=== PATIENT | female | born 1975 | race Caucasian/White ===

== ENCOUNTER 2018-07-12 19:19 | Emergency (ER) | payer BC, OTHER ==
[2018-07-12] MEDS ORDERED: ONDANSETRON 4 MG/2 ML VIAL IVP STA (20:25)
[2018-07-12] MEDS ORDERED: KETOROLAC 30 MG/ML 1 ML VIAL IVP STA (20:25)
[2018-07-12] MEDS ORDERED: MORPHINE SULFATE 2 MG/ML SYRINGE IVP STA (20:25)
[2018-07-12] MEDS ORDERED: SODIUM CHLORIDE 0.9% 1,000 ML IV ONE (20:25)
--- NOTE | 2018-07-12 20:28 | ED ---
Abdominal Pain HPI - General Chief Complaint: Abdominal Pain Stated Complaint: left side pain Time Seen by Provider: 07/12/18 19:45 Source: patient, RN notes reviewed, old records reviewed Mode of arrival: ambulatory Limitations: no limitations - History of Present Illness Initial Comments: Patient is a 43-year-old female presents weren't particularly left-sided abdominal pain for the past 3 days. Patient reports that she was seen in urgent care initially that she urinary tract infection. Urine was clear that time. They didn't x-rayof any acute process. Patient states that she's had normal bowel movements. She does feel nauseated. Surgical history includes cholecystectomy. - Related Data Home Medications Medication Instructions Recorded Confirmed Acetaminophen Tab [Tylenol Tab] 650 mg PO Q4H 10/01/15 10/01/15 Previous Rx's Medication Instructions Recorded Ibuprofen [Motrin] 800 mg PO Q6HR PRN #30 tab 06/06/15 Ibuprofen 600 mg PO TID #20 tablet 07/12/18 Allergies Allergy/AdvReac Type Severity Reaction Status Date / Time Penicillins Allergy Swelling Verified 07/12/18 19:29 Review of Systems ROS Statement: Those systems with pertinent positive or pertinent negative responses have been documented in the HPI. ROS Other: All systems not noted in ROS Statement are negative. Past Medical History Past Medical History: Seizure Disorder Additional Past Medical History / Comment(s): hypoglycemia History of Any Multi-Drug Resistant Organisms: None Reported Past Surgical History: Section, Cholecystectomy, Uterine Ablation Past Psychological History: No Psychological Hx Reported Smoking Status: Former smoker Past Alcohol Use History: None Reported Past Drug Use History: None Reported General Exam - General Exam Comments Initial Comments: this is a 43-year-old female. Alert and oriented. No significant distress. Limitations: no limitations General appearance: alert, in no apparent distress Head exam: Present: atraumatic, normocephalic, normal inspection Eye exam: Present: normal appearance, PERRL, EOMI. Absent: scleral icterus, conjunctival injection, periorbital swelling ENT exam: Present: normal exam, mucous membranes moist Neck exam: Present: normal inspection. Absent: tenderness, meningismus, lymphadenopathy Respiratory exam: Present: normal lung sounds bilaterally. Absent: respiratory distress, wheezes, rales, rhonchi, stridor Cardiovascular Exam: Present: regular rate, normal rhythm, normal heart sounds. Absent: systolic murmur, diastolic murmur, rubs, gallop, clicks GI/Abdominal exam: Present: soft, tenderness (Left lower quadrant tenderness.), normal bowel sounds. Absent: distended, guarding, rebound, rigid Extremities exam: Present: normal inspection, full ROM, normal capillary refill. Absent: tenderness, pedal edema, joint swelling, calf tenderness Back exam: Present: normal inspection Neurological exam: Present: alert, oriented X3, CN II-XII intact Psychiatric exam: Present: normal affect, normal mood Skin exam: Present: warm, dry, intact, normal color. Absent: rash Course Vital Signs 07/12/18 07/12/18 19:26 20:48 Temperature 97.9 F Pulse Rate 69 64 Respiratory 16 16 Rate Blood Pressure 123/74 127/66 O2 Sat by Pulse 99 98 Oximetry Medical Decision Making - Medical Decision Making 43-year-old female presents emergency Department states she played left-sided abdominal pain for the past 3 days. She is concerned. Her depression. She was seen in urgent care. Urinalysis negative at time. He states she has some tenderness or left lower quadrant. Concern possibly diverticulitis or urinary tract issues. At this time patient's labwork was unremarkable. Given tenderness to do computed tomography scan checking for diverticulitis. CT was completed with contrast. Negative for any acute disease. Patient's pain could likely be muscular skeletal nature as well. Patient was discharged at this time with follow-up with PCP. Given a note for work. All questions answered return parameters were discussed. - Lab Data Result diagrams: 07/12/18 20:15 07/12/18 20:15 Lab Results 07/12/18 07/12/18 07/12/18 Range/Units 20:15 20:15 20:15 WBC 5.5 (3.8-10.6) k/uL RBC 4.35 (3.80-5.40) m/uL Hgb 13.3 (11.4-16.0) gm/dL Hct 41.5 (34.0-46.0) % MCV 95.2 (80.0-100.0) fL MCH 30.5 (25.0-35.0) pg MCHC 32.0 (31.0-37.0) g/dL RDW 12.8 (11.5-15.5) % Plt Count 265 (150-450) k/uL Neutrophils % 45 % Lymphocytes % 41 % Monocytes % 8 % Eosinophils % 3 % Basophils % 1 % Neutrophils # 2.5 (1.3-7.7) k/uL Lymphocytes # 2.3 (1.0-4.8) k/uL Monocytes # 0.4 (0-1.0) k/uL Eosinophils # 0.2 (0-0.7) k/uL Basophils # 0.0 (0-0.2) k/uL PT 9.8 (9.0-12.0) sec INR 1.0 (<1.2) APTT 22.9 (22.0-30.0) sec Sodium 140 (137-145) mmol/L Potassium 4.0 (3.5-5.1) mmol/L Chloride 105 (98-107) mmol/L Carbon Dioxide 27 (22-30) mmol/L Anion Gap 8 mmol/L BUN 14 (7-17) mg/dL Creatinine 0.60 (0.52-1.04) mg/dL Est GFR (CKD-EPI)AfAm >90 (>60 ml/min/1.73 sqM) Est GFR (CKD-EPI)NonAf >90 (>60 ml/min/1.73 sqM) Glucose 86 (74-99) mg/dL Calcium 9.3 (8.4-10.2) mg/dL Total Bilirubin 0.2 (0.2-1.3) mg/dL AST 26 (14-36) U/L ALT 34 (9-52) U/L Alkaline Phosphatase 54 (38-126) U/L Total Protein 8.0 (6.3-8.2) g/dL Albumin 4.5 (3.5-5.0) g/dL Amylase 61 (30-110) U/L Lipase 173 (23-300) U/L Urine Color Urine Appearance (Clear) Urine pH (5.0-8.0) Ur Specific [place] (1.001-1.035) Urine Protein (Negative) Urine Glucose (UA) (Negative) Urine Ketones (Negative) Urine Blood (Negative) Urine Nitrite (Negative) Urine Bilirubin (Negative) Urine Urobilinogen (<2.0) mg/dL Ur Leukocyte Esterase (Negative) 07/12/18 Range/Units 20:15 WBC (3.8-10.6) k/uL RBC (3.80-5.40) m/uL Hgb (11.4-16.0) gm/dL Hct (34.0-46.0) % MCV (80.0-100.0) fL MCH (25.0-35.0) pg MCHC (31.0-37.0) g/dL RDW (11.5-15.5) % Plt Count (150-450) k/uL Neutrophils % % Lymphocytes % % Monocytes % % Eosinophils % % Basophils % % Neutrophils # (1.3-7.7) k/uL Lymphocytes # (1.0-4.8) k/uL Monocytes # (0-1.0) k/uL Eosinophils # (0-0.7) k/uL Basophils # (0-0.2) k/uL PT (9.0-12.0) sec INR (<1.2) APTT (22.0-30.0) sec Sodium (137-145) mmol/L Potassium (3.5-5.1) mmol/L Chloride (98-107) mmol/L Carbon Dioxide (22-30) mmol/L Anion Gap mmol/L BUN (7-17) mg/dL Creatinine (0.52-1.04) mg/dL Est GFR (CKD-EPI)AfAm (>60 ml/min/1.73 sqM) Est GFR (CKD-EPI)NonAf (>60 ml/min/1.73 sqM) Glucose (74-99) mg/dL Calcium (8.4-10.2) mg/dL Total Bilirubin (0.2-1.3) mg/dL AST (14-36) U/L ALT (9-52) U/L Alkaline Phosphatase (38-126) U/L Total Protein (6.3-8.2) g/dL Albumin (3.5-5.0) g/dL Amylase (30-110) U/L Lipase (23-300) U/L Urine Color Yellow Urine Appearance Clear (Clear) Urine pH 6.5 (5.0-8.0) Ur Specific [place] 1.022 (1.001-1.035) Urine Protein Negative (Negative) Urine Glucose (UA) Negative (Negative) Urine Ketones Negative (Negative) Urine Blood Negative (Negative) Urine Nitrite Negative (Negative) Urine Bilirubin Negative (Negative) Urine Urobilinogen <2.0 (<2.0) mg/dL Ur Leukocyte Esterase Negative (Negative) - Radiology Data Radiology results: report reviewed CT abdomen pelvis is negative for any acute process. Disposition Clinical Impression: Left sided abdominal pain Disposition: HOME SELF-CARE Condition: Good Instructions: Abdominal Pain (ED) Additional Instructions: Patient advised to follow-up with primary care physician. Return to the emergency department if any alarming signs or symptoms occur. Prescriptions: Ibuprofen 600 mg PO TID #20 tablet Is patient prescribed a controlled substance at d/c from ED?: No Referrals: None,Stated [Primary Care Provider] - 1-2 days Myriam Pickett MD [STAFF PHYSICIAN] - 1-2 days Time of Disposition: 22:04
[2018-07-12 20:37] LABS: Appearance,Urine Clear (Clear); Bilirubin,Urine Negative (Negative); Blood,Urine Negative (Negative); Color,Urine Yellow; Glucose,Urine (UA) Negative (Negative); Ketones,Urine Negative (Negative); Leukocyte Esterase,Urine Negative (Negative); Nitrite,Urine Negative (Negative); PH, Urine 6.5 (5.0-8.0); Protein,Urine Negative (Negative); Specific Gravity,Urine 1.022 (1.001-1.035); Urobilinogen,Urine <2.0 mg/dL (<2.0)
[2018-07-12 20:45] LABS: Partial Thromboplastin Time 22.9 sec (22.0-30.0); Prothrombin Time 9.8 sec (9.0-12.0)
[2018-07-12 20:46] LABS: Basophils % (A) 1 %; Eosinophils # (A) 0.2 k/uL (0-0.7); Eosinophils % (A) 3 %; HCT 41.5 % (34.0-46.0); HGB 13.3 gm/dL (11.4-16.0); Lymphocytes # (A) 2.3 k/uL (1.0-4.8); Lymphocytes % (A) 41 %; MCH 30.5 pg (25.0-35.0); MCV 95.2 fL (80.0-100.0); Mean Platelet Volume 7.3; Monocytes # (A) 0.4 k/uL (0-1.0); Monocytes % (A) 8 %; Neutrophils # (A) 2.5 k/uL (1.3-7.7); Neutrophils % (A) 45 %; Platelet Count 265 k/uL (150-450); RBC 4.35 m/uL (3.80-5.40); RDW 12.8 % (11.5-15.5); WBC 5.5 k/uL (3.8-10.6)
[2018-07-12 20:52] LABS: ALT 34 U/L (9-52); AST 26 U/L (14-36); Albumin 4.5 g/dL (3.5-5.0); Alkaline Phosphatase 54 U/L (38-126); Amylase 61 U/L (30-110); Anion Gap 8 mmol/L; Blood Urea Nitrogen 14 mg/dL (7-17); Calcium 9.3 mg/dL (8.4-10.2); Carbon Dioxide 27 mmol/L (22-30); Chloride 105 mmol/L (98-107); Glucose 86 mg/dL (74-99); Lipase 173 U/L (23-300); Sodium 140 mmol/L (137-145); Total Bilirubin 0.2 mg/dL (0.2-1.3)
--- NOTE | 2018-07-12 21:35 | CT ---
EXAMINATION TYPE: CT abdomen pelvis w con DATE OF EXAM: 07/12/2018 COMPARISON: HISTORY: Left lower quadrant abdominal pain and nausea. CT DLP: 1101 mGycm Automated exposure control for dose reduction was used. TECHNIQUE: Helical acquisition of images was performed from the lung bases through the pelvis. CONTRAST: Performed without Oral Contrast and with IV Contrast, patient injected with 100ml mL of Isovue 300. FINDINGS: Lung bases are clear of consolidation. There is no pleural effusion. Heart size is normal. There are clips from cholecystectomy. Liver spleen pancreas appear normal. Bile ducts are not dilated . Stomach appears normal. There is no adrenal mass. Kidneys show satisfactory contrast opacification. T here is no hydronephrosis. There is no ascites. Bladder distends smoothly. Uterus is anteverted. Ther e is no free fluid in the pelvis. Lumbar spine is intact. I see no intestinal wall thickening. There are no dilated loops. There is no evidence of thickened appendix. IMPRESSION: NEGATIVE CT SCAN OF THE ABDOMEN AND PELVIS.
[2018-07-12 22:39] VITALS: BP 111/72; PULSE 56; RESP 19; TEMP 97.3
== END 2018-07-12 22:36 | disposition home or self-care (01) ==
LOC: EC 19:19
DX: R10.9 Unspecified abdominal pain (principal); R11.0 Nausea; Z87.891 Personal history of nicotine dependence; Z90.49 Acquired absence of other specified parts of digestive tract; Z98.890 Other specified postprocedural states; Z88.0 Allergy status to penicillin
CPT/HCPCS: 36415; 80053; 82150; 83690; 85025; 85610; 85730; 81003; 74177; 99284; 96374; 96375 ×2; 96361; J2405; J1885; J2270; Q9967

== ENCOUNTER 2018-08-25 07:04 | Day surgery (SDC) | payer BC ==
[2018-08-20 14:23] VITALS: BMI 31.4
[~2018-08-25 07:04] MED LIST: LACTATED RINGERS 1,000 ML IV SCH
[2018-08-25 07:30] VITALS: RESP 16; TEMP 98.3
[2018-08-25] MEDS ORDERED: ONDANSETRON 4 MG/2 ML VIAL IVP ONE (07:35)
--- NOTE | 2018-08-25 08:32 | P.GSHP ---
History of Present Illness H&P Date: 08/25/18 CHIEF COMPLAINT: GERD HISTORY OF PRESENT ILLNESS: The patient is a 43-year-old female who presents reports gastroesophageal reflux disease. Upper endoscopy was offered for further evaluation and management. PAST MEDICAL HISTORY: Please see list. PAST SURGICAL HISTORY: Please see list. MEDICATIONS: Please see list. ALLERGIES: Please see list. SOCIAL HISTORY: No illicit drug use FAMILY HISTORY: No reports of Crohn disease or ulcerative colitis. REVIEW OF ORGAN SYSTEMS: CONSTITUTIONAL: No reports of fevers or chills. GI: Denies any blood in stools or constipation. PHYSICAL EXAM: VITAL SIGNS: Stable GENERAL: Well-developed and pleasant in no acute distress. HEENT: No scleral icterus. Extraocular movements grossly intact. Moist buccal mucosa. NECK: Supple without lymphadenopathy. CHEST: Unlabored respirations. Equal bilateral excursions. CARDIOVASCULAR: Regular rate and rhythm. Distal 2+ pulses. ABDOMEN: Soft, nondistended. MUSCULOSKELETAL: No clubbing, cyanosis, or edema. ASSESSMENT: 1. Gastroesophageal reflux disease PLAN: 1. Recommend proceeding with an upper endoscopy Past Medical History Past Medical History: Seizure Disorder Additional Past Medical History / Comment(s): Hypoglycemia. Last seizure 27 years, nausea. Pain in L side of abd. History of Any Multi-Drug Resistant Organisms: None Reported Past Surgical History: Section, Cholecystectomy, Uterine Ablation Past Anesthesia/Blood Transfusion Reactions: No Reported Reaction Smoking Status: Former smoker - Past Family History Mother Family Medical History: Cancer, Deep Vein Thrombosis (DVT) Additional Family Medical History / Comment(s): Bladder Father Family Medical History: Cancer Additional Family Medical History / Comment(s): Brain Tumor. Medications and Allergies Home Medications Medication Instructions Recorded Confirmed Type Acetaminophen [Tylenol Extra 500 mg PO BID 08/20/18 08/25/18 History Strength] Doxycycline [Vibramycin] 100 mg PO BID 08/20/18 08/25/18 History metroNIDAZOLE [Flagyl] 500 mg PO BID 08/20/18 08/25/18 History Allergies Allergy/AdvReac Type Severity Reaction Status Date / Time Penicillins Allergy Anaphylaxis Verified 08/25/18 07:21 Surgical - Exam Vital Signs Temp Pulse Resp BP Pulse Ox 98.3 F 92 16 114/78 97 08/25/18 07:30 08/25/18 07:30 08/25/18 07:30 08/25/18 07:30 08/25/18 07:30
[2018-08-25] MEDS ORDERED: LIDOCAINE 1% INJ 10MG/ML (20 ML MDV) ONE (08:38)
[2018-08-25] MEDS ORDERED: PROPOFOL 10 MG/ML 20 ML VIAL IV ONE (08:38)
--- NOTE | 2018-08-25 08:55 | P.PCN ---
Date of Procedure: 08/25/18 Description of Procedure: PREOPERATIVE DIAGNOSIS: History of rectal bleeding Left lower quadrant abdominal pain POSTOPERATIVE DIAGNOSIS: History of rectal bleeding Left lower quadrant abdominal pain OPERATION: Colonoscopy to the ileocecal valve and appendiceal orifice. SURGEON: Chanelle Rayo MD. ANESTHESIA: MAC. INDICATIONS: The patient is a 43-year-old female who presents for colonoscopy screening. Benefits and risks were described and informed consent was obtained. DESCRIPTION OF PROCEDURE: The patient had undergone Gatorade, MiraLAX and Dulcolax prep. She had been brought into the operating room and laid in the left lateral decubitus position. After adequate intravenous sedation, the rectum was examined with 2% lidocaine jelly. External hemorrhoids were encountered. The rectal tone was within normal limits. No lesions were palpated in the rectal vault. An Olympus colonoscope was advanced until the ileocecal valve and appendiceal orifice were clearly viewed. The prep was excellent with clear visualization of the mucosal folds. The scope was removed with visualization of each mucosal fold. No scattered diverticulosis was encountered. No colonic polyps were found. No evidence of focal colitis was found. Retroflexion of the scope demonstrated grade 1 internal hemorrhoids without active bleeding or inflammation. The colon was desufflated. The patient had tolerated the procedure well. Withdrawal time was over 6 minutes. FINDINGS: Internal hemorrhoids, grade 1 External prolapsed hemorrhoids. No arteriovenous malformations. No adenomatous polyps. No focal colitis. No sigmoid diverticulosis RECOMMENDATIONS: Lower endoscopy in 10 years, 2027 Plan - Discharge Summary New Discharge Prescriptions: No Action metroNIDAZOLE [Flagyl] 500 mg PO BID Doxycycline [Vibramycin] 100 mg PO BID Acetaminophen [Tylenol Extra Strength] 500 mg PO BID Discharge Medication List Acetaminophen [Tylenol Extra Strength] 500 mg PO BID 08/20/18 [History] Doxycycline [Vibramycin] 100 mg PO BID 08/20/18 [History] metroNIDAZOLE [Flagyl] 500 mg PO BID 08/20/18 [History]
[2018-08-25 09:23] VITALS: BP 102/70; PULSE 75
== END 2018-08-25 09:40 | disposition home or self-care (01) ==
LOC: ORWHC2ENDO 07:04
PROVIDERS: ATTEND Surgery Plastic and Reconstructive Surgery
DX: Z12.11 Encounter for screening for malignant neoplasm of colon (principal); K64.4 Residual hemorrhoidal skin tags; K64.0 First degree hemorrhoids; E16.2 Hypoglycemia, unspecified; Z79.2 Long term (current) use of antibiotics; Z79.899 Other long term (current) drug therapy; Z88.0 Allergy status to penicillin; Z87.891 Personal history of nicotine dependence
CPT/HCPCS: 81025; J2405; J2001; J2704; G0121; 45378

== ENCOUNTER → 2018-09-08 | Outpatient (CLI) | payer BC ==
--- NOTE | 2018-09-09 13:47 | MM ---
Reason for exam: screening (asymptomatic). Last mammogram was performed 3 years and 1 month ago. Physical Findings: A clinical breast exam by your physician is recommended on an annual basis and results should be correlated with mammographic findings. MG 3D Screening Mammo W/Cad Bilateral CC and MLO view(s) were taken. Prior study comparison: August 08, 2015, mammogram, performed at [facility]. August 06, 2015, mammogram, performed at [facility]. The breast tissue is heterogeneously dense. This may lower the sensitivity of mammography. There is no discrete abnormality. No significant changes when compared with prior studies. ASSESSMENT: Negative, BI-RAD 1 RECOMMENDATION: Routine screening mammogram of both breasts in 1 year.
== END | disposition home or self-care (01) ==
LOC: RADMAMWWP 14:53
PROVIDERS: ATTEND Family Medicine
DX: Z12.31 Encounter for screening mammogram for malignant neoplasm of breast (principal)
CPT/HCPCS: 77063; 77067

== ENCOUNTER 2019-01-26 14:01 | Emergency (ER) | payer BC ==
[2019-01-26 14:18] VITALS: BP 122/74; PULSE 85; RESP 16; TEMP 98.3
[2019-01-26] MEDS ORDERED: HYDROcodone/APAP 5-325MG 1 EACH TAB PO STA (14:35)
--- NOTE | 2019-01-26 14:37 | ED ---
General Adult HPI - General Chief complaint: Abdominal Pain Stated complaint: left side pain Time Seen by Provider: 01/26/19 14:25 Source: patient Mode of arrival: ambulatory Limitations: no limitations - History of Present Illness Initial comments: Dictation was produced using [employer] dictation software. please excuse any grammatical, word or spelling errors. Chief Complaint: 43-year-old female presents with chief complaint of abdominal pain. History of Present Illness: Patient is a 43-year-old female presents with abd ominal pain patient was in the [facility] 2 days ago where she underwent extensive workup. Patient also had a CT. Patient was sent home stable medical condition. Patient was trying to make an appointment with her primary care physician however primary care physician was not available today. She instead came to the emergency department. Patient was supposed to work today however did not feel sick enough to do so. She decided come to the emergency department. Patient states that she has sharp tenderness to the lateral incision of her scar. Patient otherwise feels that her symptoms are stable at this time. She does report exacerbation with movement and palpation. The ROS documented in this emergency department record has been reviewed and confirmed by me. Those systems with pertinent positive or negative responses have been documented in the HPI. All other systems are other negative and/or noncontributory. PHYSICAL EXAM: General Impression: Alert and oriented x3, not in acute distress HEENT: Normocephalic atraumatic, extra-ocular movements intact, pupils equal and reactive to light bilaterally, mucous membranes moist. Cardiovascular: Heart regular rate and rhythm, S1&S2 audible, no murmurs, rubs or gallops Chest: Lungs clear to auscultation bilaterally, no rhonchi, no wheeze, no rales Abdomen: Bowel sounds present, abdomen soft, point tenderness to the left lateral portion of her scar, non-distended, no organomegaly Musculoskeletal: Pulses present and equal in all extremities, no peripheral edema Motor: no focal deficits noted Neurological: CN II-XII grossly intact, no focal motor or sensory deficits noted Skin: Intact with no visualized rashes Psych: Normal affect and mood ED course: 43-year-old female presents with chief complaint of abdominal pain. Patient states that her symptoms are stable at this time. She is agreeable that she feels that her symptoms have not her breasts or change since having complete workup performed at [facility]. Vital signs upon arrival are within acceptable limits. Symptoms are positive for mild point tenderness to the lateral portion of her abdominal scar. No clinical concern for surgical abdomen at this time. Patient denies any urinary symptoms at this time. Urinalysis obtained for possible culture. Patient given prescription for analgesia. She is told to follow-up with her primary care physician upon discharge. Patient tolerating by mouth at bedside. - Related Data Home Medications Medication Instructions Recorded Confirmed Acetaminophen [Tylenol Extra 500 mg PO BID 08/20/18 08/25/18 Strength] Doxycycline [Vibramycin] 100 mg PO BID 08/20/18 08/25/18 metroNIDAZOLE [Flagyl] 500 mg PO BID 08/20/18 08/25/18 Allergies Allergy/AdvReac Type Severity Reaction Status Date / Time Penicillins Allergy Anaphylaxis Verified 01/26/19 14:18 Review of Systems ROS Statement: Those systems with pertinent positive or pertinent negative responses have been documented in the HPI. ROS Other: All systems not noted in ROS Statement are negative. Past Medical History Past Medical History: Seizure Disorder Additional Past Medical History / Comment(s): Hypoglycemia. Last seizure 27 years, nausea. Pain in L side of abd. History of Any Multi-Drug Resistant Organisms: None Reported Past Surgical History: Section, Cholecystectomy, Uterine Ablation Past Anesthesia/Blood Transfusion Reactions: No Reported Reaction Past Psychological History: No Psychological Hx Reported Smoking Status: Former smoker - Past Family History Mother Family Medical History: Cancer, Deep Vein Thrombosis (DVT) Additional Family Medical History / Comment(s): Bladder Father Family Medical History: Cancer Additional Family Medical History / Comment(s): Brain Tumor. General Exam Limitations: no limitations Course Vital Signs 01/26/19 14:16 Temperature 98.3 F Pulse Rate 85 Respiratory 16 Rate Blood Pressure 122/74 O2 Sat by Pulse 98 Oximetry Disposition Clinical Impression: Abdominal pain Disposition: HOME SELF-CARE Condition: Good Instructions (If sedation given, give patient instructions): Abdominal Pain (ED) Is patient prescribed a controlled substance at d/c from ED?: No Referrals: Myriam Pickett MD [Primary Care Provider] - 1-2 days Time of Disposition: 14:40
--- NOTE | 2019-01-26 14:41 | ED ---
Disposition Clinical Impression: Abdominal pain Disposition: HOME SELF-CARE Condition: Good Instructions (If sedation given, give patient instructions): Abdominal Pain (ED) Prescriptions: HYDROcodone/APAP 5-325MG [Bath 5-325] 1 tab PO Q6HR PRN 3 Days #6 tab PRN Reason: Severe Pain Is patient prescribed a controlled substance at d/c from ED?: Yes If prescribed controlled substance>3 days was MAPS reviewed?: Prescribed <3 Days Referrals: Myriam Pickett MD [Primary Care Provider] - 1-2 days Time of Disposition: 14:40
[2019-01-26 14:55] LABS: Appearance,Urine Clear (Clear); Bilirubin,Urine Negative (Negative); Blood,Urine Negative (Negative); Color,Urine Colorless; Glucose,Urine (UA) Negative (Negative); Ketones,Urine Negative (Negative); Leukocyte Esterase,Urine Negative (Negative); Nitrite,Urine Negative (Negative); PH, Urine 7.5 (5.0-8.0); Protein,Urine Negative (Negative); Specific Gravity,Urine 1.004 (1.001-1.035); Urobilinogen,Urine <2.0 mg/dL (<2.0)
== END 2019-01-26 15:23 | disposition home or self-care (01) ==
LOC: EC 14:01
DX: R10.32 Left lower quadrant pain (principal); Z90.49 Acquired absence of other specified parts of digestive tract; Z98.890 Other specified postprocedural states; Z87.891 Personal history of nicotine dependence; Z79.899 Other long term (current) drug therapy; Z88.0 Allergy status to penicillin
CPT/HCPCS: 81003; 99284

== ENCOUNTER → 2019-02-17 | Outpatient (CLI) | payer BC ==
[2019-02-17 18:55] LABS: Basophils # (A) 0.1 k/uL (0-0.2); Basophils % (A) 1 %; Eosinophils # (A) 0.2 k/uL (0-0.7); Eosinophils % (A) 4 %; HCT 38.3 % (34.0-46.0); HGB 13.2 gm/dL (11.4-16.0); Lymphocytes # (A) 1.9 k/uL (1.0-4.8); Lymphocytes % (A) 34 %; MCH 31.5 pg (25.0-35.0); MCHC 34.3 g/dL (31.0-37.0); MCV 91.8 fL (80.0-100.0); Mean Platelet Volume 8.3; Monocytes # (A) 0.4 k/uL (0-1.0); Monocytes % (A) 7 %; Neutrophils % (A) 53 %; Platelet Count 256 k/uL (150-450); RBC 4.18 m/uL (3.80-5.40); RDW 13.4 % (11.5-15.5); WBC 5.7 k/uL (3.8-10.6)
[2019-02-17 20:19] LABS: Erythrocyte Sedimentation Rate 8 mm/hr (0-20)
[2019-02-17 23:49] LABS: ALT 22 U/L (8-44); AST 21 U/L (13-35); C Reactive Protein <0.4 mg/dL (0.0-0.8)
[2019-02-17 23:52] LABS: Rheumatoid Factor 8 IU/mL (0-15)
[2019-02-17 23:53] LABS: Uric Acid 6.7 mg/dL (2.9-7.7)
== END | disposition home or self-care (01) ==
LOC: LABWHC1 15:57
PROVIDERS: ATTEND Podiatrist Foot & Ankle Surgery
DX: K74.60 Unspecified cirrhosis of liver (principal); D64.9 Anemia, unspecified; M19.90 Unspecified osteoarthritis, unspecified site
CPT/HCPCS: 36415; 84450; 84460; 84550; 85025; 85652; 86038; 86140; 86431

== ENCOUNTER → 2019-02-28 | Outpatient (CLI) | payer BC ==
[2019-02-28 11:43] LABS: Basophils % (A) 1 %; Eosinophils # (A) 0.2 k/uL (0-0.7); Eosinophils % (A) 3 %; HCT 38.4 % (34.0-46.0); Lymphocytes # (A) 1.5 k/uL (1.0-4.8); Lymphocytes % (A) 27 %; MCH 31.2 pg (25.0-35.0); MCHC 33.9 g/dL (31.0-37.0); Mean Platelet Volume 7.4; Monocytes # (A) 0.4 k/uL (0-1.0); Monocytes % (A) 7 %; Neutrophils # (A) 3.3 k/uL (1.3-7.7); Neutrophils % (A) 61 %; Platelet Count 268 k/uL (150-450); RBC 4.17 m/uL (3.80-5.40); RDW 13.7 % (11.5-15.5); WBC 5.5 k/uL (3.8-10.6)
[2019-02-28 12:55] LABS: Erythrocyte Sedimentation Rate 17 mm/hr (0-20)
[2019-02-28 17:57] LABS: Gliadin AB IgA, Unit 1.1 U/mL
[2019-02-28 18:36] LABS: ALT 38 U/L (8-44); AST 25 U/L (13-35); Albumin/Globulin Ratio 1.83 (1.60-3.17); Alkaline Phosphatase 56 U/L (41-126); C Reactive Protein <0.4 mg/dL (0.0-0.8); Calcium 9.4 mg/dL (8.7-10.3); Chloride 106 mmol/L (96-109); Globulin 2.4 g/dL (1.6-3.3); Glucose 133 mg/dL (70-110); Potassium 4.2 mmol/L (3.5-5.5); Sodium 139 mmol/L (135-145); Total Bilirubin 0.3 mg/dL (0.3-1.2); Total Protein 6.8 g/dL (6.2-8.2)
== END | disposition home or self-care (01) ==
LOC: LABWHC1 10:42
PROVIDERS: ATTEND Internal Medicine
DX: R19.7 Diarrhea, unspecified (principal)
CPT/HCPCS: 36415; 80053; 83516; 84443; 85025; 85652; 86140

== ENCOUNTER 2019-03-13 15:01 | Emergency (ER) | payer BC ==
[2019-03-13 15:06] VITALS: RESP 18
[2019-03-13] MEDS ORDERED: SODIUM CHLORIDE 0.9% 1,000 ML IV STA (15:13)
[2019-03-13] MEDS ORDERED: ONDANSETRON 4 MG/2 ML VIAL IVP STA (15:13)
[2019-03-13] MEDS ORDERED: HYDROcodone/APAP 5-325MG 1 EACH TAB PO STA (15:16)
--- NOTE | 2019-03-13 15:23 | ED ---
General Adult HPI - General Chief complaint: Abdominal Pain Stated complaint: Rt side flank pain, vomiting Time Seen by Provider: 03/13/19 15:08 Source: patient, RN notes reviewed, old records reviewed Mode of arrival: ambulatory Limitations: no limitations - History of Present Illness Initial comments: 43-year-old female patient with past history of liver cirrrhosis, tubal ligation, chronic abdominal pain presents to ED with 1 day of right lower quadrant abdominal pain. Patient states that this is been a chronic complaint greater than 2 months. Patient has been seen by GI for this where she was started on Bentyl. Patient states that she is having some nausea vomiting. Patient denies any other complaints. Patient denies any chest pain shortness of breath. Systemic: Pt denies fatigue, myalgia, fever/chills, rash. Pt denies weakness, night sweats, weight loss. Neuro: Pt denies headache, visual disturbances, syncope or pre-syncope. HEENT: Pt denies ocular discharge or irritation, otalgia, rhinorrhea, pharyngitis or notable lymphadenopathy. Cardiopulmonary: Pt denies chest pain, SOB, heart palpitations, dyspnea on exertion. Abdominal/GI: Pt denies abdominal pain, n/v/d. : Pt denies dysuria, burning w/ urination, frequency/urgency. Denies new onset urinary or bowel incontinence. MSK: Pt denies myalgia, loss of strength or function in extremities. Neuro: Pt denies new onset weakness, paresthesias. - Related Data Home Medications Medication Instructions Recorded Confirmed Dicyclomine HCl 20 mg PO TID 03/13/19 03/13/19 Ibuprofen [Motrin] 600 mg PO Q8HR PRN 03/13/19 03/13/19 Methylcellulose (with Sugar) 2 gm PO DAILY 03/13/19 03/13/19 [Citrucel Powder] Ondansetron Odt [Zofran Odt] 4 mg PO Q12HR PRN 03/13/19 03/13/19 Previous Rx's Medication Instructions Recorded HYDROcodone/APAP 5-325MG [[place] 1 tab PO Q6HR PRN 3 Days #6 tab 01/26/19 5-325] Allergies Allergy/AdvReac Type Severity Reaction Status Date / Time Penicillins Allergy Swelling Verified 03/13/19 15:55 Review of Systems ROS Statement: Those systems with pertinent positive or pertinent negative responses have been documented in the HPI. ROS Other: All systems not noted in ROS Statement are negative. Past Medical History Past Medical History: Seizure Disorder Additional Past Medical History / Comment(s): Hypoglycemia. Last seizure 27 years History of Any Multi-Drug Resistant Organisms: None Reported Past Surgical History: Section, Cholecystectomy, Uterine Ablation Past Anesthesia/Blood Transfusion Reactions: No Reported Reaction Past Psychological History: No Psychological Hx Reported Smoking Status: Former smoker Past Alcohol Use History: None Reported Past Drug Use History: None Reported - Past Family History Mother Family Medical History: Cancer, Deep Vein Thrombosis (DVT) Additional Family Medical History / Comment(s): Bladder Father Family Medical History: Cancer Additional Family Medical History / Comment(s): Brain Tumor. General Exam - General Exam Comments Initial Comments: Constitutional: NAD, AOX3, Pt has pleasant affect. HEENT: NC/AT, trachea midline, neck supple, no lymphadenopathy. Posterior pharynx non erythematous, without exudates. External ears appear normal, without discharge. Mucous membranes moist. Eyes PERRLA, EOM intact. There is no scleral icterus. No pallor noted. Cardiopulmonary: RRR, no murmurs, rubs or gallops, no JVD noted. Lungs CTAB in anterior and posterior wyatt. No peripheral edema. Abdominal exam: Abdomen soft and non-distended. Abdomen mildly tender to palpation in RLQ, no guarding no rigidity. . Bowel sounds active in LLQ. No hepatosplenomegaly. No ecchymosis Neuro: CN II-XII grossly intact. No nuchal rigidity. MSK: No posterior calf tenderness bilaterally, homans sign negative bilaterally. Posterior tibialis and radial pulse +2 bilaterally. Sensation intact in upper and lower extremities. Full active ROM in upper and lower extremities, 5/5 stregnth. Limitations: no limitations Course Vital Signs 03/13/19 15:03 Temperature 97.6 F Pulse Rate 68 Respiratory 18 Rate Blood Pressure 110/76 O2 Sat by Pulse 100 Oximetry Medical Decision Making - Medical Decision Making 43-year-old female patient with past history of liver cirrrhosis, tubal ligation, chronic abdominal pain presents to ED with 1 day of right lower quadrant abdominal pain. Patient states that this is been a chronic complaint greater than 2 months. Patient has been seen by GI for this where she was started on Bentyl. Patient states that she is having some nausea vomiting. Patient denies any other complaints. Patient denies any chest pain shortness of breath. Patient vital signs stable, afebrile. Physical exam displayed right lower quadrant mildly tender to palpation. Laboratory investigations revealed noncompressive CBC, CMP, UA. CT abdomen and pelvis displayed negative computed tomography scan. Patient was discharged. Patient will follow up with primary care provider and bee breeder in 1-2 days. Patient return to ER if condition worsens in any way. Case discussed with Dr. Torrez. - Lab Data Result diagrams: 03/13/19 15:30 03/13/19 15:30 Lab Results 03/13/19 03/13/19 03/13/19 Range/Units 15:30 15:30 15:30 WBC 10.2 (3.8-10.6) k/uL RBC 4.19 (3.80-5.40) m/uL Hgb 13.1 (11.4-16.0) gm/dL Hct 38.5 (34.0-46.0) % MCV 91.9 (80.0-100.0) fL MCH 31.2 (25.0-35.0) pg MCHC 34.0 (31.0-37.0) g/dL RDW 13.5 (11.5-15.5) % Plt Count 247 (150-450) k/uL Neutrophils % 82 % Lymphocytes % 11 % Monocytes % 5 % Eosinophils % 1 % Basophils % 0 % Neutrophils # 8.4 H (1.3-7.7) k/uL Lymphocytes # 1.1 (1.0-4.8) k/uL Monocytes # 0.5 (0-1.0) k/uL Eosinophils # 0.1 (0-0.7) k/uL Basophils # 0.0 (0-0.2) k/uL Sodium 141 (137-145) mmol/L Potassium 4.0 (3.5-5.1) mmol/L Chloride 105 (98-107) mmol/L Carbon Dioxide 26 (22-30) mmol/L Anion Gap 10 mmol/L BUN 13 (7-17) mg/dL Creatinine 0.53 (0.52-1.04) mg/dL Est GFR (CKD-EPI)AfAm >90 (>60 ml/min/1.73 sqM) Est GFR (CKD-EPI)NonAf >90 (>60 ml/min/1.73 sqM) Glucose 112 H (74-99) mg/dL Calcium 9.8 (8.4-10.2) mg/dL Total Bilirubin 0.4 (0.2-1.3) mg/dL AST 26 (14-36) U/L ALT 33 (9-52) U/L Alkaline Phosphatase 67 (38-126) U/L Total Protein 8.0 (6.3-8.2) g/dL Albumin 4.7 (3.5-5.0) g/dL Lipase 122 (23-300) U/L Urine Color Yellow Urine Appearance Clear (Clear) Urine pH 5.5 (5.0-8.0) Ur Specific [place] 1.018 (1.001-1.035) Urine Protein Negative (Negative) Urine Glucose (UA) Negative (Negative) Urine Ketones Negative (Negative) Urine Blood Negative (Negative) Urine Nitrite Negative (Negative) Urine Bilirubin Negative (Negative) Urine Urobilinogen <2.0 (<2.0) mg/dL Ur Leukocyte Esterase Negative (Negative) Disposition Clinical Impression: Abdominal pain Disposition: HOME SELF-CARE Condition: Stable Instructions (If sedation given, give patient instructions): Abdominal Pain (ED) Additional Instructions: Patient to adhere to previously discussed treatment plan and will take medication(s) as directed. Patient to follow up with PCP in 1-2 days. Patient to return to ED if symptoms do not improve. Please follow-up with primary care provider and bee breeder in 1-2 days. Is patient prescribed a controlled substance at d/c from ED?: No Referrals: Myriam Pickett MD [Primary Care Provider] - 1-2 days
[2019-03-13] MEDS ORDERED: ACETAMINOPHEN TAB 325 MG TAB PO STA (15:33)
[2019-03-13 15:45] LABS: Appearance,Urine Clear (Clear); Bilirubin,Urine Negative (Negative); Blood,Urine Negative (Negative); Color,Urine Yellow; Glucose,Urine (UA) Negative (Negative); Ketones,Urine Negative (Negative); Leukocyte Esterase,Urine Negative (Negative); Nitrite,Urine Negative (Negative); PH, Urine 5.5 (5.0-8.0); Protein,Urine Negative (Negative); Specific Gravity,Urine 1.018 (1.001-1.035); Urobilinogen,Urine <2.0 mg/dL (<2.0)
[2019-03-13 15:49] LABS: Basophils % (A) 0 %; Eosinophils # (A) 0.1 k/uL (0-0.7); Eosinophils % (A) 1 %; HCT 38.5 % (34.0-46.0); HGB 13.1 gm/dL (11.4-16.0); Lymphocytes # (A) 1.1 k/uL (1.0-4.8); Lymphocytes % (A) 11 %; MCH 31.2 pg (25.0-35.0); MCV 91.9 fL (80.0-100.0); Mean Platelet Volume 7.6; Monocytes # (A) 0.5 k/uL (0-1.0); Monocytes % (A) 5 %; Neutrophils # (A) 8.4 k/uL (1.3-7.7); Neutrophils % (A) 82 %; Platelet Count 247 k/uL (150-450); RBC 4.19 m/uL (3.80-5.40); RDW 13.5 % (11.5-15.5); WBC 10.2 k/uL (3.8-10.6)
[2019-03-13 15:52] LABS: ALT 33 U/L (9-52); AST 26 U/L (14-36); Albumin 4.7 g/dL (3.5-5.0); Alkaline Phosphatase 67 U/L (38-126); Anion Gap 10 mmol/L; Blood Urea Nitrogen 13 mg/dL (7-17); Calcium 9.8 mg/dL (8.4-10.2); Carbon Dioxide 26 mmol/L (22-30); Chloride 105 mmol/L (98-107); Glucose 112 mg/dL (74-99); Lipase 122 U/L (23-300); Sodium 141 mmol/L (137-145); Total Bilirubin 0.4 mg/dL (0.2-1.3)
--- NOTE | 2019-03-13 16:38 | CT ---
EXAMINATION TYPE: CT abdomen pelvis w con DATE OF EXAM: 03/13/2019 COMPARISON: 07/12/2018 HISTORY: RLQ pain, vomiting CT DLP: 1165.3 mGycm Automated exposure control for dose reduction was used. TECHNIQUE: Helical acquisition of images was performed from the lung bases through the pelvis. CONTRAST: Performed without Oral Contrast and with IV Contrast, patient injected with 100 mL of Isovue 300. FINDINGS: Lung bases are clear. There is no pleural effusion. Heart size is normal. There is no pericardial eff usion. Liver spleen pancreas appear normal. There are clips from cholecystectomy. Bile ducts are not dilated . Stomach appears normal. There is no adrenal mass. Kidneys show satisfactory contrast opacification. There is no hydronephrosi s. Ureters are not dilated. There is no retroperitoneal adenopathy. Bladder distends smoothly. Uterus is anteverted. There is no free fluid in the pelvis. There is no in guinal hernia. Appendix is very small. There is no sign of appendicitis. There is no mesenteric edema. There is no free air or ascites. There is broad-based umbilical hernia contains fat. I see no evidence of a bowel obstruction. There is no intestinal wall thickening. Lumbar vertebra appear intact. Bony pelvis is intact. IMPRESSION: NEGATIVE CT SCAN ABDOMEN AND PELVIS. NO ADVERSE CHANGE COMPARED TO OLD EXAM.
[2019-03-13 17:30] VITALS: BP 116/78; PULSE 78; TEMP 98.2
== END 2019-03-13 17:28 | disposition home or self-care (01) ==
LOC: EC 15:01
DX: R10.31 Right lower quadrant pain (principal); R11.10 Vomiting, unspecified; Z87.891 Personal history of nicotine dependence; Z79.899 Other long term (current) drug therapy; Z88.0 Allergy status to penicillin; Z90.49 Acquired absence of other specified parts of digestive tract; Z53.29 Procedure and treatment not carried out because of patient's decision for other reasons
CPT/HCPCS: 36415; 80053; 83690; 85025; 81003; 74177; 99285; 96374; 96361; J2405; Q9967

== ENCOUNTER 2023-12-26 23:04 | Emergency (ER) | payer BC, OTHER ==
--- NOTE | 2023-12-26 23:32 | ED ---
Chest Pain HPI - General Chief Complaint: Chest Pain Stated Complaint: chest pain Time Seen by Provider: 12/26/23 23:13 Source: patient Mode of arrival: ambulatory Limitations: no limitations - History of Present Illness MD Complaint: chest pain -: minutes(s) Onset: other Pain Location: substernal Pain Radiation: none Severity: moderate Quality: other (Gas-like) Consistency: intermittent Improves With: nothing Worsens With: other Treatments Prior to Arrival: none - Related Data Home Medications Medication Instructions Recorded Confirmed Dicyclomine HCl 20 mg PO TID 03/13/19 03/13/19 Ibuprofen [Motrin] 600 mg PO Q8HR PRN 03/13/19 03/13/19 Methylcellulose (with Sugar) 2 gm PO DAILY 03/13/19 03/13/19 [Citrucel Powder] Ondansetron Odt [Zofran Odt] 4 mg PO Q12HR PRN 03/13/19 03/13/19 Previous Rx's Medication Instructions Recorded HYDROcodone/APAP 5-325MG [[place] 1 tab PO Q6HR PRN 3 Days #6 tab 01/26/19 5-325] Allergies Allergy/AdvReac Type Severity Reaction Status Date / Time Penicillins Allergy Swelling Verified 12/26/23 23:09 Review of Systems ROS Statement: Those systems with pertinent positive or pertinent negative responses have been documented in the HPI. ROS Other: All systems not noted in ROS Statement are negative. Constitutional: Denies: fever, chills Respiratory: Denies: cough, dyspnea Cardiovascular: Reports: as per HPI, chest pain. Denies: palpitations, dyspnea on exertion, syncope Gastrointestinal: Reports: nausea. Denies: abdominal pain, vomiting, diarrhea Genitourinary: Denies: dysuria, hematuria Musculoskeletal: Denies: back pain Skin: Denies: rash Neurological: Denies: headache, weakness EKG Findings - EKG Comments: EKG Findings:: Possible old anteroseptal infarct. - EKG Results: EKG: interpreted by KARLY, sinus rhythm (Rate 78 bpm) - Blocks, [place], Hypertrophy, ST Abn: AV and intraventricular conduction: right bundle branch block (fixed/intermittent, complete/incomplete) (Incomplete) QRS axis and voltage: left axis deviation (-30 to -90), low voltage (<0.5 MV total QRS and <1.0 MV in each precordial lead) Past Medical History Past Medical History: Seizure Disorder Additional Past Medical History / Comment(s): Hypoglycemia. Last seizure 27 years History of Any Multi-Drug Resistant Organisms: None Reported Past Surgical History: Section, Cholecystectomy, Uterine Ablation Past Anesthesia/Blood Transfusion Reactions: No Reported Reaction Past Psychological History: No Psychological Hx Reported Smoking Status: Never smoker Past Alcohol Use History: None Reported Past Drug Use History: None Reported - Past Family History Mother Family Medical History: Cancer, Deep Vein Thrombosis (DVT) Additional Family Medical History / Comment(s): Bladder Father Family Medical History: Cancer Additional Family Medical History / Comment(s): Brain Tumor. General Exam Limitations: no limitations General appearance: alert, in no apparent distress Head exam: Present: atraumatic, normocephalic Eye exam: Present: normal appearance. Absent: scleral icterus, conjunctival injection Neck exam: Present: normal inspection Respiratory exam: Present: normal lung sounds bilaterally. Absent: respiratory distress, wheezes, rales, rhonchi, stridor, chest wall tenderness, accessory muscle use Cardiovascular Exam: Present: regular rate, normal rhythm, normal heart sounds. Absent: systolic murmur, diastolic murmur, rubs, gallop GI/Abdominal exam: Present: soft. Absent: distended, tenderness, guarding, rebound, rigid, mass Extremities exam: Present: normal inspection, normal capillary refill. Absent: pedal edema, calf tenderness Back exam: Present: normal inspection. Absent: CVA tenderness (R), CVA tenderness (L) Neurological exam: Present: alert Skin exam: Present: warm, dry, intact, normal color. Absent: rash Course Vital Signs 12/26/23 12/27/23 23:07 00:08 Temperature 98 F Pulse Rate 88 70 Respiratory 18 16 Rate Blood Pressure 151/91 128/88 O2 Sat by Pulse 97 98 Oximetry Chest Pain MDM - MDM The patient had chest x-ray which interpreted as negative for acute infiltrate, pneumothorax, congestive heart failure The patient's symptoms had resolved. I reviewed the patient's studies with her and discussed possible observation, but the patient is feeling well and wants to go home. We discussed the appropriate follow-up and further care as well as return parameters. Was pt. sent in by a medical professional or institution (, PA, ENGINEERING TECH, urgent care, hospital, or intermediate...) When possible be specific @ -[No] Did you speak to anyone other than the patient for history (EMS, parent, family, police, friend...)? What history was obtained from this source @ -[No] Did you review nursing and triage notes (agree or disagree)? Why? @ -[I reviewed and agree with nursing and triage notes] Were old charts reviewed (outside hosp., previous admission, EMS record, old EKG, old radiological studies, urgent care reports/EKG's, intermediate records)? Report findings @ -[No old charts were reviewed] Differential Diagnosis (chest pain, altered mental status, abdominal pain women, abdominal pain men, vaginal bleeding, weakness, fever, dyspnea, syncope, headache, dizziness, GI bleed, back pain, seizure, CVA, palpatations, mental health, musculoskeletal)? @ -[Differential Chest Pain: Stable Angina, Unstable Angina, STEMI, NSTEMI Aortic Dissection, Pneumothorax, Musculoskeletal, Esophageal Spasm GERD, Cholecystitis, Pancreatitis, Zoster, this is not meant to be an all-inclusive list. EKG interpreted by me (3pts min.). @ -[I interpreted as above] X-rays interpreted by me (1pt min.). @ -[I interpreted as above CT interpreted by me (1pt min.). @ -[None done] U/S interpreted by me (1pt. min.). @ -[None done] What testing was considered but not performed or refused? (CT, X-rays, U/S, labs)? Why? @ -[None] What meds were considered but not given or refused? Why? @ -[None] Did you discuss the management of the patient with other professionals (prof beltran i.e. , PA, ENGINEERING TECH, lab, RT, psych nurse, psychotherapist social worker, cryptographic machine operator, teacher, associate loan officer, behavioral health case manager)? Give summary @ -[No] Was smoking cessation discussed for >3mins.? @ -[No] Was critical care preformed (if so, how long)? @ -[No] Were there social determinants of health that impacted care today? How? (Homelessness, low income, unemployed, alcoholism, drug addiction, transportation, low edu. Level, literacy, decrease access to med. care, custodial, rehab)? @ -[No] Was there de-escalation of care discussed even if they declined (Discuss DNR or withdrawal of care, Hospice)? DNR status @ -[No] What co-morbidities impacted this encounter? (DM, HTN, Smoking, COPD, CAD, Cancer, CVA, ARF, Chemo, Hep., AIDS, mental health diagnosis, sleep apnea, morbid obesity)? @ -[None] Was patient admitted / discharged? Hospital course, mention meds given and route, prescriptions, significant lab abnormalities, going to OR and other pertinent info. @ -As above Undiagnosed new problem with uncertain prognosis? @ -[No] Drug Therapy requiring intensive monitoring for toxicity (Heparin, Nitro, Insulin, Cardizem)? @ -[No] Were any procedures done? @ -[No] Diagnosis/symptom? @ -[Acute chest pain Acute, or Chronic, or Acute on Chronic? @ -[Acute Uncomplicated (without systemic symptoms) or Complicated (systemic symptoms)? @ -[Uncomplicated Side effects of treatment? @ -[No] Exacerbation, Progression, or Severe Exacerbation? @ -[No] Poses a threat to life or bodily function? How? (Chest pain, [place], [place], pneumonia, PE, COPD, DKA, ARF, appy, cholecystitis, CVA, Diverticulitis, Homicidal, Suicidal, threat to staff... and all critical care pts) @ -[Low likelihood Disposition Clinical Impression: Chest pain Disposition: HOME SELF-CARE Condition: Good Instructions (If sedation given, give patient instructions): Chest Pain (ED) Is patient prescribed a controlled substance at d/c from ED?: No Referrals: None,Stated [Primary Care Provider] - 1-2 days Prem Pichardo MD [Medical Doctor] - 1-2 days
[2023-12-26 23:35] VITALS: TEMP 98
[2023-12-26] MEDS: ASPIRIN 81 MG PO STA (23:49)
[2023-12-26 23:53] LABS: Basophils # (A) 0.1 k/uL (0-0.2); Basophils % (A) 1 %; Eosinophils # (A) 0.2 k/uL (0-0.7); Eosinophils % (A) 3 %; HCT 38.9 % (34.0-46.0); HGB 13.3 gm/dL (11.4-16.0); Lymphocytes % (A) 43 %; MCH 31.7 pg (25.0-35.0); MCHC 34.2 g/dL (31.0-37.0); MCV 92.6 fL (80.0-100.0); Mean Platelet Volume 8.3; Monocytes # (A) 0.5 k/uL (0-1.0); Monocytes % (A) 8 %; Neutrophils % (A) 43 %; Platelet Count 261 k/uL (150-450); RDW 12.9 % (11.5-15.5); WBC 6.8 k/uL (3.8-10.6)
[2023-12-27 00:01] LABS: ALT 59 U/L (4-34); AST 42 U/L (14-36); African American GFR (CKD) >90 (>60 ml/min/1.73 sqM); Albumin 4.6 g/dL (3.5-5.0); Alkaline Phosphatase 91 U/L (38-126); Amylase 59 U/L (30-110); Anion Gap 7 mmol/L; Blood Urea Nitrogen 15 mg/dL (7-17); Carbon Dioxide 27 mmol/L (22-30); Chloride 105 mmol/L (98-107); Glucose 95 mg/dL (74-99); Lipase 191 U/L (23-300); Non-African American GFR(CKD) >90 (>60 ml/min/1.73 sqM); Potassium 4.2 mmol/L (3.5-5.1); Sodium 139 mmol/L (137-145); Total Bilirubin 0.4 mg/dL (0.2-1.3); Total Protein 8.4 g/dL (6.3-8.2)
[2023-12-27 00:10] LABS: INR 0.9 (<1.2)
[2023-12-27 00:11] VITALS: BP 128/88; PULSE 70; RESP 16
--- NOTE | 2023-12-27 00:11 | XR ---
EXAM: XR Chest, 2 Views CLINICAL HISTORY: ITS.REASON XR Reason: Chest Pain TECHNIQUE: Frontal and lateral views of the chest. COMPARISON: XR Chest dated 01/28/13 FINDINGS: Lungs: Unremarkable. No consolidation. Pleural space: Unremarkable. No pneumothorax. Heart: Unremarkable. No cardiomegaly. Mediastinum: Unremarkable. Normal mediastinal contour. Bones/joints: Degenerative changes of the spine. No acute fracture. IMPRESSION: No evidence of acute cardiopulmonary disease.
== END 2023-12-27 01:01 | disposition home or self-care (01) ==
LOC: EC 23:04
DX: R07.9 Chest pain, unspecified (principal); Z88.0 Allergy status to penicillin; Z90.49 Acquired absence of other specified parts of digestive tract
CPT/HCPCS: 36415; 71046; 80053; 82150; 83690; 83735; 84484; 85025; 85379; 85610; 85730; 93005; 99285

== ENCOUNTER 2024-11-18 07:27 | Emergency (ER) | payer OTHER ==
[2024-11-18 07:43] VITALS: BP 127/88; PULSE 93; RESP 18; TEMP 98.2
--- NOTE | 2024-11-18 09:16 | XR ---
EXAMINATION TYPE: XR shoulder complete LT DATE OF EXAM: 11/18/2024 8:22 AM COMPARISON: None. CLINICAL INDICATION: Female, 49 years old with history of fall, TECHNIQUE: XR shoulder complete LT 3 view(s) obtained. FINDINGS: The humeral head articulates with the glenoid. The acromio-clavicular junction is normal. No acute fractures or dislocations are evident. A follow up study can be performed 7-10 days from acute trauma for continued pain. MRI can be perfor med if soft tissue evaluation would be of benefit. IMPRESSION: 1. No acute osseous left shoulder abnormality. [facility], , 11/18/2024 9:13 AM
--- NOTE | 2024-11-18 09:17 | XR ---
EXAMINATION TYPE: XR elbow complete LT DATE OF EXAM: 11/18/2024 8:25 AM COMPARISON: None. CLINICAL INDICATION: Female, 49 years old with history of fall, pain TECHNIQUE: 3 view(s) obtained. FINDINGS: Radius aligns normally with the humerus. No acute fracture or dislocation is evident. Anterior fat pa d is normal. No elevation of posterior fat pad is evident. Soft tissues are normal. Follow up exams can be performed 7-10 days from acute trauma for continued pain. IMPRESSION: 1. No acute osseous abnormality left elbow [facility], , 11/18/2024 9:15 AM
--- NOTE | 2024-11-18 09:24 | XR ---
EXAMINATION TYPE: XR ribs LT DATE OF EXAM: 11/18/2024 8:25 AM COMPARISON: None. CLINICAL INDICATION: Female, 49 years old with history of fall, pain TECHNIQUE: 2 view(s) obtained. FINDINGS: No displaced rib fractures evident. No pneumothorax is evident. Follow-up can be performed as clinica lly indicated. IMPRESSION: 1. No displaced rib fractures [facility], , 11/18/2024 9:22 AM
--- NOTE | 2024-11-18 09:37 | ED ---
Fall HPI - General Chief Complaint: Fall Stated Complaint: Fall Time Seen by Provider: 11/18/24 08:01 Source: patient, RN notes reviewed Mode of arrival: wheelchair Limitations: no limitations - History of Present Illness Initial Comments: This is a 49-year-old female who presents to the emergency department for a fall. Patient slipped and fell in her driveway this morning, landing on her left side. Denies hitting her head or any loss of consciousness. Not taking any blood thinners. States that all of the pain is over her left shoulder, left elbow, and left rib cage. MD Complaint: fall - Related Data Home Medications Medication Instructions Recorded Confirmed Dicyclomine HCl 20 mg PO TID 03/13/19 03/13/19 Ibuprofen [Motrin] 600 mg PO Q8HR PRN 03/13/19 03/13/19 Methylcellulose (with Sugar) 2 gm PO DAILY 03/13/19 03/13/19 [Citrucel Powder] Ondansetron Odt [Zofran Odt] 4 mg PO Q12HR PRN 03/13/19 03/13/19 Previous Rx's Medication Instructions Recorded HYDROcodone/APAP 5-325MG [[place] 1 tab PO Q6HR PRN 3 Days #6 tab 01/26/19 5-325] Ketorolac [Toradol] 10 mg PO Q6HR PRN #15 tab 11/18/24 Lidocaine 5% Patch [Lidoderm 5% 1 patch TOPICAL DAILY PRN #30 patch 11/18/24 Patch] methocarbamoL [Robaxin-750] 1,500 mg PO TID PRN #30 tab 11/18/24 Allergies Allergy/AdvReac Type Severity Reaction Status Date / Time Penicillins Allergy Swelling Verified 11/18/24 07:39 Review of Systems ROS Statement: Those systems with pertinent positive or pertinent negative responses have been documented in the HPI. ROS Other: All systems not noted in ROS Statement are negative. Past Medical History Past Medical History: Seizure Disorder Additional Past Medical History / Comment(s): Hypoglycemia. Last seizure 27 years History of Any Multi-Drug Resistant Organisms: None Reported Past Surgical History: Section, Cholecystectomy, Uterine Ablation Past Anesthesia/Blood Transfusion Reactions: No Reported Reaction Past Psychological History: No Psychological Hx Reported Smoking Status: Never smoker Past Alcohol Use History: None Reported Past Drug Use History: None Reported - Past Family History Mother Family Medical History: Cancer, Deep Vein Thrombosis (DVT) Additional Family Medical History / Comment(s): Bladder Father Family Medical History: Cancer Additional Family Medical History / Comment(s): Brain Tumor. General Exam Limitations: no limitations General appearance: alert, in no apparent distress Head exam: Present: atraumatic, normocephalic, normal inspection Eye exam: Present: normal appearance, PERRL, EOMI. Absent: scleral icterus, conjunctival injection, periorbital swelling Respiratory exam: Present: normal lung sounds bilaterally. Absent: respiratory distress, wheezes, rales, rhonchi, stridor Cardiovascular Exam: Present: regular rate, normal rhythm, normal heart sounds. Absent: systolic murmur, diastolic murmur, rubs, gallop, clicks Extremities exam: Present: other (Tenderness to palpation over the left shoulder and elbow. Range of motion limited by pain. Minor swelling over the left elbow. 2+ radial pulses.) Neurological exam: Present: alert, oriented X3, CN II-XII intact Psychiatric exam: Present: normal affect, normal mood Course Vital Signs 11/18/24 07:39 Temperature 98.2 F Pulse Rate 93 Respiratory 18 Rate Blood Pressure 127/88 O2 Sat by Pulse 96 Oximetry Medical Decision Making - Medical Decision Making This is a 49-year-old female who presents to the emergency department for a fall. Was pt. sent in by a medical professional or institution? @ -No Did you speak to anyone other than the patient for history? @ -No Did you review nursing and triage notes? @ -Yes, and I agree, it is accurate with regards to the patient's symptoms. Were old charts reviewed? @ -No Differential Diagnosis? @ -Differential Musculoskeletal Muscular strain, contusion, ligament sprain, fracture, arthritis, septic arthritis, bursitis, cellulitis, muscle spasm, nerve compression, DVT, arterial occlusion, herpes zoster, electrolyte abnormality, tumor.... This is not meant to be in all inclusive list EKG interpreted by me (3pts min.)? @ -Not obtained X-rays interpreted by me (1pt min.)? @ -X-ray of the left shoulder, left elbow, and left rib cage obtained. My interpretation of all images identifies no acute fractures. CT interpreted by me (1pt min.)? @ -Not obtained U/S interpreted by me (1pt. min.)? @ -Not obtained What testing was considered but not performed? (CT, X-rays, U/S, labs)? Why? @ -None What meds were considered but not given? Why? @ -None Did you discuss the management of the patient with other professionals? @ -No Did you reconcile home meds? @ -No Was smoking cessation discussed for >3mins.? @ -No Was critical care preformed (if so, how long)? @ -No Were there social determinants of health that impacted care today? How? (Homelessness, low income, unemployed, alcoholism, drug addiction, transportation, low edu. Level, literacy, decrease access to med. care, fdc, rehab)? @ -No Was there de-escalation of care discussed even if they declined? (Discuss DNR or withdrawal of care, Hospice)? @ -No What co-morbidities impacted this encounter? (DM, HTN, Smoking, COPD, CAD, Cancer, CVA, Hep., AIDS, mental health diagnosis, sleep apnea, morbid obesity)? @ -None Was patient admitted / discharged? @ -Discharged. X-ray of the left rib cage, left shoulder, and left elbow obtained revealing no acute fractures. Discussed that this does not exclude a small or hairline fracture on the rib cage especially. Pain was treated in the emergency department. Prescription for Toradol, Robaxin, and lidocaine patches provided. Advised she make sure she takes several deep breaths an hour despite the pain to reduce the risk of developing a secondary pneumonia. Patient discharged home in stable condition and advised to follow-up with her PCP. Case discussed with ED attending Dr. Mclean. Return precautions reviewed in depth, the patient is instructed to return to the emergency department with any new, worsening, or concerning symptoms. Patient verbalized understanding. Undiagnosed new problem with uncertain prognosis? @ -None Drug Therapy requiring intensive monitoring for toxicity (Heparin, Nitro, Insulin, Cardizem)? @ -None Were any procedures done? @ -None Diagnosis/symptom? @ -Fall, left rib contusion, left shoulder contusion Acute, or Chronic, or Acute on Chronic? @ -Acute Uncomplicated (without systemic symptoms) or Complicated (systemic symptoms)? @ -Uncomplicated Side effects of treatment? @ -None Exacerbation, Progression, or Severe Exacerbation] @ -Not applicable Poses a threat to life or bodily function? @ -May limit her use of the left arm for the meantime - Radiology Data Radiology results: report reviewed, image reviewed Disposition Clinical Impression: Fall, Contusion of rib on left side, Shoulder contusion Disposition: HOME SELF-CARE Instructions (If sedation given, give patient instructions): Fall Prevention (ED), Rib Contusion (ED) Additional Instructions: Return to the emergency department with any new, worsening, or concerning symptoms. Take the Toradol with Tylenol as needed for pain relief. If you choose to take the Toradol, do not take any other anti-inflammatories such as ibuprofen, take one or the other. Take the Robaxin as 1 to 2 tablets up to 3-4 times daily. You can also apply the lidocaine patches daily. Make sure you take several deep breaths an hour despite the pain to reduce the risk of developing a secondary pneumonia. Follow up with your primary care provider in 1-2 days. Prescriptions: Lidocaine 5% Patch [Lidoderm 5% Patch] 1 patch TOPICAL DAILY PRN #30 patch PRN Reason: Pain methocarbamoL [Robaxin-750] 1,500 mg PO TID PRN #30 tab PRN Reason: Pain Ketorolac [Toradol] 10 mg PO Q6HR PRN #15 tab PRN Reason: Pain Is patient prescribed a controlled substance at d/c from ED?: No Referrals: None,Stated [Primary Care Provider] - 1-2 days Time of Disposition: 09:37
[2024-11-18] MEDS: LIDOCAINE 4% PATCH TOPICAL ONE (10:59)
[2024-11-18] MEDS: ACET/COD 300 MG/30 MG STARTER PACK 6 TAB BTL PO STA (10:59)
[2024-11-18] MEDS: MORPHINE SULFATE 4 MG/ML SYRINGE IM STA (11:00)
[2024-11-18] MEDS: KETOROLAC 15 MG/ML 1 ML VIAL IM STA (11:00)
== END 2024-11-18 11:14 | disposition home or self-care (01) ==
LOC: EC 07:27
DX: S20.212A Contusion of left front wall of thorax, initial encounter (principal); S40.012A Contusion of left shoulder, initial encounter; Z88.0 Allergy status to penicillin; W01.0XXA Fall on same level from slipping, tripping and stumbling without subsequent striking against object, initial encounter
CPT/HCPCS: 73030; 71100; 73080; 99283; 96372; J2270; J1885